=== PATIENT | female | born 1995 | race Caucasian/White ===

== ENCOUNTER 2018-04-02 06:10 | Emergency (ER) | payer OTHER ==
[~2018-04-02 06:10] MED LIST: CEF300 PO; LOR5/325 PO; MED150I IM; NO ROUTINE MEDS
[2018-04-02 06:15] VITALS: BP 117/65
[2018-04-02] MEDS ORDERED: NS(*) 0.9% 1000 ML BAG 1,000 ML IV ONE (06:30)
--- NOTE | 2018-04-02 06:33 | ER Report ---
History and Physical Time Seen By MD: 06:21 Hx. of Stated Complaint: UTI FOR A COUPLE WEEKS HPI/ROS CHIEF COMPLAINT: possible UTI HISTORY OF PRESENT ILLNESS: This is a 22 year old female. She has been having symptoms of dysuria and urgency for the last 2 weeks. Last night had a fever with chills. Now with some pain in the right flank. Having a couple episodes of vomiting last night as well. History of a UTI that turned into a pyelonephritis in the past. Denies abdominal pain. Using over the counter Azo. Allergies: Coded Allergies: No Known Drug Allergies (Verified , 04/02/18) Home Meds Active Scripts Amoxicillin/Pot Clav 875-125 Mg Tab (AUGMENTIN 875-125 TABLET) 1 Each Tablet, 1 TAB PO Q12H, #14 TAB 0 Refills Prov:KARAN JEFFERS MD 04/02/18 Discontinued Reported Medications Acetaminophen/Hydrocodone (Lortab 5/325 Mg) 5 Mg/325 Mg Tab, 1 TAB PO Q4-6H PRN 01/06/12 Cefdinir (Omnicef) 300 Mg Cap, 300 MG PO BID 01/06/12 Medroxyprogesterone Acetate (Depo-Provera) 150 Mg/Ml Soln, 150 MG IM TODAY 01/06/12 Reviewed Nurses Notes: Yes Hx Smoking: No Hx Substance Use Disorder: No Hx Alcohol Use: Yes (SOCIALLY) Constitutional Vital Sign - Last 24 Hours 04/02/18 04/02/18 04/02/18 04/02/18 06:15 06:30 06:45 07:00 Temp 99.6 Pulse 125 119 98 102 Resp 18 B/P (MAP) 117/65 Pulse Ox 92 93 93 93 O2 Delivery Room Air Physical Exam General Appearance: The patient is alert. No acute distress. Eyes: Pupils are equal, round. No pallor, injection or icterus. ENT: Mucous membranes are moist. Respiratory: Lungs are clear to auscultation. Cardiovascular: Regular rate and rhythm. No murmurs, gallops or rubs. Gastrointestinal: Abdomen is nontender, soft. Nondistended. No rebound or guarding. Normal active bowel sounds. Has right sided CVA tenderness that is moderate. Neurological: Alert and oriented x3. Musculoskeletal: No tenderness in palpation of the back/spine. DIFFERENTIAL DIAGNOSIS: After history and physical exam, differential diagnosis was considered for symptoms that suggest UTI versus pyelonephritis. Medical Decision Making Data Points Result Diagram: 04/02/18 0637 04/02/18 0637 Laboratory Hematology Test 04/02/18 06:16 04/02/18 06:37 Urine Color Yellow Urine Clarity Cloudy Urine pH 5.0 pH (4.8-9.5) Urine Specific [place] 1.012 Urine Protein Negative mg/dL (NEGATIVE) Urine Glucose (UA) Negative mg/dL (NEGATIVE) Urine Ketones Negative mg/dL (NEGATIVE) Urine Blood Moderate (NEGATIVE) Urine Nitrite Positive (NEGATIVE) Urine Bilirubin Negative (NEGATIVE) Urine Urobilinogen Negative mg/dL (0.2-1.9) Urine Leukocyte Esterase Large (NEGATIVE) Urine RBC 21 /HPF (0-2/HPF) Urine WBC 499 /HPF (0-5/HPF) Urine WBC Clumps Mod /HPF Urine Squamous Epithelial Cells Many /LPF (</=FEW) Urine Transitional Epithelial Cells Many /LPF (NONE-FEW) Urine Bacteria Few /HPF (NONE-FEW) Urine Mucus Few /HPF (NONE-FEW) Red Blood Count 4.51 M/uL (4.17-5.56) Mean Corpuscular Volume 88.5 fL (80.0-96.0) Mean Corpuscular Hemoglobin 30.5 pg (26.0-33.0) Mean Corpuscular Hemoglobin Concent 34.4 g/dL (32.0-36.0) Red Cell Distribution Width 12.5 % (11.5-14.5) Mean Platelet Volume 9.9 fL (7.2-11.1) Neutrophils (%) (Auto) 92.4 % (39.4-72.5) Lymphocytes (%) (Auto) 4.4 % (17.6-49.6) Monocytes (%) (Auto) 2.7 % (4.1-12.4) Eosinophils (%) (Auto) 0.3 % (0.4-6.7) Basophils (%) (Auto) 0.2 % (0.3-1.4) Nucleated RBC Relative Count (auto) 0.0 /100WBC Neutrophils # (Auto) 9.8 K/uL (2.0-7.4) Lymphocytes # (Auto) 0.5 K/uL (1.3-3.6) Monocytes # (Auto) 0.3 K/uL (0.3-1.0) Eosinophils # (Auto) 0.0 K/uL (0.0-0.5) Basophils # (Auto) 0.0 K/uL (0.0-0.1) Nucleated RBC Absolute Count (auto) 0.00 K/uL Sodium Level 137 mmol/L (137-145) Potassium Level 3.3 mmol/L (3.5-5.0) Chloride Level 103 mmol/L (98-107) Carbon Dioxide Level 23 mmol/L (22-31) Blood Urea Nitrogen 12 mg/dl (7-18) Creatinine 0.60 mg/dl (0.52-1.04) Glomerular Filtration Rate Calc > 60.0 Random Glucose 113 mg/dl (75-110) Calcium Level 9.1 mg/dl (8.4-10.2) Total Bilirubin 1.1 mg/dl (0.2-1.3) Aspartate Amino Transf (AST/SGOT) 14 U/L (0-35) Alanine Aminotransferase (ALT/SGPT) 21 U/L (0-56) Alkaline Phosphatase 70 U/L (0-126) Total Protein 6.9 g/dl (6.3-8.2) Albumin 4.1 g/dl (3.5-5.0) Human Chorionic Gonadotropin, Qual Negative (NEGATIVE) Chemistry Test 04/02/18 06:16 04/02/18 06:37 Urine Color Yellow Urine Clarity Cloudy Urine pH 5.0 pH (4.8-9.5) Urine Specific [place] 1.012 Urine Protein Negative mg/dL (NEGATIVE) Urine Glucose (UA) Negative mg/dL (NEGATIVE) Urine Ketones Negative mg/dL (NEGATIVE) Urine Blood Moderate (NEGATIVE) Urine Nitrite Positive (NEGATIVE) Urine Bilirubin Negative (NEGATIVE) Urine Urobilinogen Negative mg/dL (0.2-1.9) Urine Leukocyte Esterase Large (NEGATIVE) Urine RBC 21 /HPF (0-2/HPF) Urine WBC 499 /HPF (0-5/HPF) Urine WBC Clumps Mod /HPF Urine Squamous Epithelial Cells Many /LPF (</=FEW) Urine Transitional Epithelial Cells Many /LPF (NONE-FEW) Urine Bacteria Few /HPF (NONE-FEW) Urine Mucus Few /HPF (NONE-FEW) White Blood Count 10.6 k/uL (4.5-11.0) Red Blood Count 4.51 M/uL (4.17-5.56) Hemoglobin 13.7 g/dL (12.0-16.0) Hematocrit 39.9 % (34.0-47.0) Mean Corpuscular Volume 88.5 fL (80.0-96.0) Mean Corpuscular Hemoglobin 30.5 pg (26.0-33.0) Mean Corpuscular Hemoglobin Concent 34.4 g/dL (32.0-36.0) Red Cell Distribution Width 12.5 % (11.5-14.5) Platelet Count 156 K/uL (150-450) Mean Platelet Volume 9.9 fL (7.2-11.1) Neutrophils (%) (Auto) 92.4 % (39.4-72.5) Lymphocytes (%) (Auto) 4.4 % (17.6-49.6) Monocytes (%) (Auto) 2.7 % (4.1-12.4) Eosinophils (%) (Auto) 0.3 % (0.4-6.7) Basophils (%) (Auto) 0.2 % (0.3-1.4) Nucleated RBC Relative Count (auto) 0.0 /100WBC Neutrophils # (Auto) 9.8 K/uL (2.0-7.4) Lymphocytes # (Auto) 0.5 K/uL (1.3-3.6) Monocytes # (Auto) 0.3 K/uL (0.3-1.0) Eosinophils # (Auto) 0.0 K/uL (0.0-0.5) Basophils # (Auto) 0.0 K/uL (0.0-0.1) Nucleated RBC Absolute Count (auto) 0.00 K/uL Glomerular Filtration Rate Calc > 60.0 Calcium Level 9.1 mg/dl (8.4-10.2) Total Bilirubin 1.1 mg/dl (0.2-1.3) Aspartate Amino Transf (AST/SGOT) 14 U/L (0-35) Alanine Aminotransferase (ALT/SGPT) 21 U/L (0-56) Alkaline Phosphatase 70 U/L (0-126) Total Protein 6.9 g/dl (6.3-8.2) Albumin 4.1 g/dl (3.5-5.0) Human Chorionic Gonadotropin, Qual Negative (NEGATIVE) Urinalysis Test 04/02/18 06:16 Urine Color Yellow Urine Clarity Cloudy Urine pH 5.0 pH (4.8-9.5) Urine Specific [place] 1.012 Urine Protein Negative mg/dL (NEGATIVE) Urine Glucose (UA) Negative mg/dL (NEGATIVE) Urine Ketones Negative mg/dL (NEGATIVE) Urine Blood Moderate (NEGATIVE) Urine Nitrite Positive (NEGATIVE) Urine Bilirubin Negative (NEGATIVE) Urine Urobilinogen Negative mg/dL (0.2-1.9) Urine Leukocyte Esterase Large (NEGATIVE) Urine RBC 21 /HPF (0-2/HPF) Urine WBC 499 /HPF (0-5/HPF) Urine WBC Clumps Mod /HPF Urine Squamous Epithelial Cells Many /LPF (</=FEW) Urine Transitional Epithelial Cells Many /LPF (NONE-FEW) Urine Bacteria Few /HPF (NONE-FEW) Urine Mucus Few /HPF (NONE-FEW) ED Course/Re-evaluation Clinical Indication for ER IV: IV Access ED Course Labs without elevated white count, but with left shift. Normal kidney function. Started Augmentin. Urine culture pending. Decision to Disposition Date: Apr 02, 2018 Decision to Disposition Time: 06:53 Depart Departure Latest Vital Signs Vital Signs Date Time Temp Pulse Resp B/P (MAP) Pulse Ox O2 Delivery O2 Flow Rate FiO2 04/02/18 07:00 102 93 04/02/18 06:15 99.6 18 117/65 Room Air Impression: Primary Impression: Urinary tract infection Condition: Improved Disposition: HOME OR SELF-CARE New Scripts Amoxicillin/Pot Clav 875-125 Mg Tab (AUGMENTIN 875-125 TABLET) 1 Each Tablet 1 TAB PO Q12H, #14 TAB 0 Refills Prov: KARAN JEFFERS MD 04/02/18 Patient Instructions: Urinary Tract Infection in Women (ED) Additional Instructions: You have a urinary tract infection. Take the antibiotic Augmenting 875/125 twice a day for 7 days. Rest and increase fluid intake for the next few days. You can continue to take Azo as needed for dysuria. Take Tylenol or Ibuprofen as needed for pain or fever. Problem Qualifiers Primary Impression: Urinary tract infection Urinary tract infection type: acute cystitis Hematuria presence: without hematuria Qualified Codes: N30.00 - Acute cystitis without hematuria KARAN JEFFERS MD Apr 02, 2018 06:33
[2018-04-02 06:44] LABS: PLATELET COUNT, AUTOMATED 156 K/uL (150-450)
[2018-04-02] MEDS ORDERED: IBUPROFEN 800 MG TAB PO ONE (06:55)
[2018-04-02] MEDS ORDERED: AMOX/CLAV 875 MG TAB PO ONE (06:55)
[2018-04-02] MEDS ORDERED: AMOX-559 PO (06:57)
== END 2018-04-02 07:15 | disposition home or self-care (01) ==
LOC: ER 06:25
DX: N30.00 Acute cystitis without hematuria (principal)
CPT/HCPCS: 81001; 84703; 85025; 87077; 87088; 87186; 96360; 99283; J7030; 82040; 82247; 82310; 82374; 82435; 82565; 82947; 84075; 84132; 84155; 84295; 84450; 84460; 84520